=== PATIENT | female | born 1990 | race Caucasian/White ===

== ENCOUNTER → 2016-03-24 | Outpatient (CLI) | payer BC ==
[~2016-03-24] MED LIST: PRENATAL PLUS1 TA1 PO
== END ==
LOC: LAB 09:26
DX: O20.0 Threatened abortion (principal); Z3A.01 Less than 8 weeks gestation of pregnancy

== ENCOUNTER → 2016-12-23 | Outpatient (CLI) | payer BC ==
[2016-12-23 17:42] LABS: HEMOGLOBIN 12.5 g/dL (12.2-16.2); LYMPH % 20.2 % (10-50.0)
[2016-12-23 20:33] LABS: ABO BLOOD TYPE O; RH BLOOD TYPE NEGATIVE
[2016-12-25 08:50] LABS: HIV Screen 4th Generation wRfx Non Reactive (Non Reactive); Rapid Plasma Reagin, Quant Non Reactive (NonRea<1:1); Rubella Antibodies, IgG 2.97 index (Immune >0.99)
[2016-12-25 09:38] LABS: HBsAg Screen Negative (Negative)
== END ==
LOC: LAB 16:52
PROVIDERS: Nurse Practitioner Obstetrics & Gynecology
DX: Z34.80 Encounter for supervision of other normal pregnancy, unspecified trimester (principal)
CPT/HCPCS: G0432